=== PATIENT | female | born 1980 | race American Indian/Alaskan Native ===

== ENCOUNTER 2017-07-03 14:30 | Outpatient (CLI) | payer OTHER ==
--- NOTE | 2017-07-03 15:12 | Ultrasound Report ---
ULTRASOUND RENAL BILATERAL HISTORY: Left flank pain. TECHNIQUE: transabdominal ultrasound with color Doppler interrogation. FINDINGS: Scans of the kidneys show normal renal contours. There is normal central calyceal clustering and good preservation of the cortical thickness. There is no evidence of mass or hydronephrosis. The views of the bladder and the region of the ureters appear normal. IMPRESSION: Unremarkable renal ultrasound.
== END 2017-07-03 14:31 | disposition home or self-care (01) ==
LOC: SPVWC 14:30
PROVIDERS: ATTEND Internal Medicine
DX: R10.9 Unspecified abdominal pain (principal); M54.6 Pain in thoracic spine
CPT/HCPCS: 76770